=== PATIENT | female | born 1955 | race Caucasian/White ===

== ENCOUNTER → 2020-07-19 | Outpatient (CLI) | payer BC ==
[2014-07-13 10:27] VITALS: BP 106/67
[~2020-07-19] MED LIST: ASPI-630 PO; LORA-254 PO; NITR0.4T22 SL; SUCR1ORA14 PO
--- NOTE | 2020-07-19 11:50 | RAD ---
ADDENDUM #1 Multiple question darnell appear in this report due to a dictation system bug. Please disregard these c haracters. Electronically signed by: Curry Chappell MD (07/21/2020 9:08 AM) [facility] ABDOMEN+PELVIS WO History: Right flank pain, history stones. Cholecystectomy, appendectomy, hysterectomy. Comparison: CT abdomen pelvis 11/01/2015. Technique: CT of the abdomen and pelvis without contrast. Findings: Lung bases: Bandlike atelectasis left lower lobe. General abdomen: No ascites. No free air. Liver : Normal in size and attenuation. Unchanged 5 mm left hepatic lobe hypodensity too small to justyna racterize most likely cyst. Gallbladder/Biliary Tree: Status post cholecystectomy. No intrahepatic or extrahepatic biliary ductal dilatation. Pancreas: Normal. Spleen: Normal in size and attenuation. Adrenal Glands: Normal. Genitourinary: No hydronephrosis or hydroureter.?No renal masses identified. Normal partially distend ed bladder contour. Gastrointestinal: Status post cholecystectomy. Unremarkable small bowel and colon. Lymph nodes: No lymphadenopathy. Vessels: Mild aortoiliac calcification. Pelvic Organs: Status post hysterectomy. No masses. Soft tissues: Unremarkable. Bones: No acute or aggressive lesions. Impression: 1. No acute findings in the abdomen and pelvis. No nephrolithiasis or hydronephrosis. ------ Exposure: One or more of the following individualized dose reduction techniques were utilized for thi s examination: 1. Automated exposure control 2. Adjustment of the mA and/or kV according to patient size 3. Use of iterative reconstruction technique. Electronically signed by: Curry Chappell MD (07/19/2020 11:48 AM) [facility]
== END ==
LOC: CT 10:54
PROVIDERS: ATTEND Physician Assistant
DX: N32.89 Other specified disorders of bladder (principal); I70.0 Atherosclerosis of aorta; R31.9 Hematuria, unspecified; J98.11 Atelectasis
CPT/HCPCS: 74176

== ENCOUNTER 2021-01-30 18:44 | Emergency (ER) | payer BC ==
[~2021-01-30] VITALS: Ht 157.5 cm; Wt 52.2 kg
--- NOTE | 2021-01-30 19:06 | PHYS DOC ---
Past History Past Medical History: Anxiety, Constipation, GERD, Kidney Stones Past Surgical History: Cholecystectomy, Hysterectomy Alcohol Use: None Drug Use: None General Adult EDM: Chief Complaint: FLANK PAIN HPI: HPI: ".. I ve been having abdomen pain for months. now.. more frequent this past month.. but tonight it is worse... ".. " I ve had sciatica in past.. and kidney stones.. too many time s to count..." Patient is a 65 year old FEMALE who presents with complaints of left flank and abdomen pain. Patient states pain has been off and on for the past month and much more severe tonight. Patient does not relate it to sciatica related more to kidney stones however this seems to be him more localized to the lower abdomen tonight. Patient does have pain with percussion of left flank. Patient denies any trauma. No severe ill contacts. No history of travel. Normally follows with Dr. Hallman. Review of Systems: Review of Systems: Constitutional: Denies fever or chills Eyes: Denies change in visual acuity HENT: Denies nasal congestion or sore throat Respiratory: Denies cough or shortness of breath Cardiovascular: Denies chest pain or edema GI: Complains of abdominal pain, nausea,. Vomiting, bloody stools or diarrhea. History of constipation : Denies dysuria Musculoskeletal: Complains of left flank pain Integument: Denies rash Neurologic: Denies headache, focal weakness or sensory changes Endocrine: Denies polyuria or polydipsia Lymphatic: Denies swollen glands Psychiatric: Denies depression or anxiety Family History: Family History: Noncontributory to presentation Current Medications: Current Meds: See nursing for home meds Allergies: Allergies: Allergies Coded Allergies Type Severity Reaction Last Updated Verified Penicillins Allergy Intermediate 07/13/14 Yes ciprofloxacin Allergy Intermediate 07/13/14 Yes codeine Allergy Intermediate 07/13/14 Yes fluconazole Allergy Intermediate 07/13/14 Yes hydrocodone Allergy Intermediate 07/13/14 Yes meperidine Allergy Intermediate 07/13/14 Yes tetanus immune globulin Allergy Intermediate 07/13/14 Yes Physical Exam: PE: Constitutional: Moderate acute distress, non-toxic appearance. [] HENT: Normocephalic, atraumatic, bilateral external ears normal, oropharynx moist, no oral exudates, nose normal. [] Eyes: PERRLA, EOMI, conjunctiva normal, no discharge. [] Neck: Normal range of motion, no tenderness, supple, no stridor. [] Cardiovascular: Tachycardia heart rate regular rhythm, no murmur [] Lungs & Thorax: Bilateral breath sounds equal apex few scattered wheezes auscultation [] Abdomen: Bowel sounds decreased, soft, no tenderness, no masses, no pulsatile masses. Old surgery scars. Skin: Warm, dry, no erythema, no rash. [] Back: No tenderness, some left-sided CVA tenderness. [] Extremities: No tenderness, no cyanosis, no clubbing, ROM intact, no edema. No cording appreciated. Neurologic: Alert and oriented X 3, normal motor function, normal sensory function, no focal deficits noted. [] Psychologic: Affect anxious, judgement normal, mood normal. [] EKG: EKG: My interpretation EKG shows a sinus tachycardia 102 bpm. SN 1-3 pattern no findings of acute STEMI of contralateral changes. [] Time of EKG is 1952 hrs. Radiology/Procedures: Radiology/Procedures: [][address] [address] IMAGING REPORT Signed PATIENT: LAMONT FINLEY ACCOUNT: [id number] : 1955 LOCATION: ER AGE: 65 SEX: F EXAM STATUS: REG ER ORD. PHYSICIAN: YONATHAN OBANDO MD REASON: pain, OMNI 240, 30ml & OMNI 300, 75ml PROCEDURE: CT ABD PELV W/ORAL&IV CONTRAST CT abdomen pelvis with contrast dated 01/30/2021. COMPARISON: 07/19/2020. Clinical data indication: Pain. TECHNIQUE: Contiguous axial imaging the M pelvis performed after the administration of 75 cc Omnipaque 300. One or more of the following individualized dose reduction techniques were utilized for this examination: 1. Automated exposure control 2. Adjustment of the mA and/or kV according to patient size 3. Use of iterative reconstruction technique. FINDINGS: Limited images of lung bases show linear bands of increased density in the lower lobes, likely scar or atelectasis. Heart size within normal limits. No pleural or pericardial effusion. There are circumscribed low-density foci in the liver, most consistent with cysts. No biliary ductal dilatation. Gallbladder surgically absent. Spleen is normal in size. Pancreas, adrenal glands and kidneys are unremarkable. No hydronephrosis. Partially opacified GI tract normal in caliber and contour. No bowel wall thickening. No inflammatory stranding in the mesentery. No ascites or lymphadenopathy. Appendix is not clearly identified. No inflammatory changes in the right lower quadrant. Abdominal aorta normal in caliber. Images of pelvis show moderately distended urinary bladder. Uterus is surgically absent. No free fluid or pelvic adenopathy. Bone windows show no acute finding. Multilevel spondylosis. IMPRESSION: 1. No acute abnormality of abdomen or pelvis. 2. The appendix is not clearly identified. No inflammatory changes in the mesentery. 3. Small hepatic cysts. 4. Status post cholecystectomy and hysterectomy. Electronically signed by: Phoenix Bae MD (01/30/2021 11:08 PM) [facility] [place] AND SIGNED BY: PHOENIX BAE MD DATE: 01/30/219 CC: YONATHAN OBANDO MD; JOON CAMARGO MD ~MTH0 0 Heart Score: C/O Chest Pain: N/A Risk Factors: Risk Factors: DM, Current or recent (<one month) smoker, HTN, HLP, family history of CAD, obesity. Risk Scores: Score 0 - 3: 2.5% MACE over next 6 weeks - Discharge Home Score 4 - 6: 20.3% MACE over next 6 weeks - Admit for Clinical Observation Score 7 - 10: 72.7% MACE over next 6 weeks - Early Invasive Strategies Course & Med Decision Making: Course & Med Decision Making Pertinent Labs and Imaging studies reviewed. (See chart for details) Patient push fluids. Patient follow-up primary care. Patient to review ED work-up. With primary. Patient return if any concerns. Patient stay on a clear fluid diet for the next 48 hours. No solids. No milk products. Follow- up primary care. Return if any concerns. Impression: 1. Abdomen pain 2. Viral syndrome 3. Elevated alk phos 133 [] Eileen Disclaimer: Eileen Disclaimer: This electronic medical record was generated, in whole or in part, using a voice recognition dictation system. Departure Departure: Referrals: JOON CAMARGO MD (PCP) Eileen Disclaimer This chart was dictated in whole or in part using Voice Recognition software in a busy, high-work load, and often noisy Emergency Department environment. It may contain unintended and wholly unrecognized errors or omissions. Dragon Disclaimer This chart was dictated in whole or in part using Voice Recognition software in a busy, high-work load, and often noisy Emergency Department environment. It may contain unintended and wholly unrecognized errors or omissions. Attending Signature Attending Signature I have participated in the care of this patient and I have reviewed and agree with all pertinent clinical information above including history, exam, and recommendations. YONATHAN OBANDO MD Jan 30, 2021 19:06
[2021-01-30] MEDS: KETOROLAC 30 MG/ML VIAL. IVP ONE (19:45)
[2021-01-30] MEDS: ONDANSETRON PF 4 MG/2 ML VIAL. IVP ONE (19:45)
[2021-01-30] MEDS: FAMOTIDINE 20 MG/2 ML VIAL IVP ONE (19:45)
[2021-01-30 19:51] LABS: BASO % 1 % (0-3); EOS # 0.1 x10^3/uL (0.0-0.7); EOS % 1 % (0-3); HEMATOCRIT 40.3 % (36.0-47.0); HEMOGLOBIN 13.8 g/dL (12.0-15.5); LYMPH # 2.6 x10^3/uL (1.0-4.8); LYMPH % 28 % (24-48); MEAN CORPUSCULAR HEMOGLOBIN 33 pg (25-35); MEAN CORPUSCULAR HGB CONC 34 g/dL (31-37); MEAN CORPUSCULAR VOLUME 97 fL (79-100); MONO # 0.6 x10^3/uL (0.0-1.1); MONO % 7 % (0-9); NEUT % 64 % (31-73); PLATELET COUNT 236 x10^3/uL (140-400); RED BLOOD COUNT 4.16 x10^6/uL (3.50-5.40); RED CELL DISTRIBUTION WIDTH 12.8 % (11.5-14.5); WHITE BLOOD COUNT 9.3 x10^3/uL (4.0-11.0)
[2021-01-30 19:53] LABS: CALCIUM 8.9 mg/dL (8.5-10.1); CREATININE 0.7 mg/dL (0.6-1.0); GFR 84.2; POTASSIUM 3.7 mmol/L (3.5-5.1)
[2021-01-30] MEDS: IV RINGERS SOLUTION,LACTATED 1,000 ML IV SCH (19:54)
[2021-01-30 20:02] LABS: ALBUMIN 3.8 g/dL (3.4-5.0); DIRECT BILIRUBIN 0.1 mg/dL (0.0-0.2); TOTAL BILIRUBIN 0.2 mg/dL (0.2-1.0); TOTAL PROTEIN 7.2 g/dL (6.4-8.2)
[2021-01-30 20:07] LABS: BARBITURATES NEG (NEG); BENZODIAZEPINES NEG (NEG); CANNABINOIDS NEG (NEG); COCAINE NEG (NEG); METHADONE NEG (NEG); OPIATES NEG (NEG); PHENCYCLIDINE NEG (NEG)
[2021-01-30 20:12] LABS: AMPHETAMINE/METHAMPHETAMINE NEG (NEG)
[2021-01-30 20:30] LABS: BACTERIA,URINE FEW /HPF (0-FEW); BILIRUBIN,URINE NEG (NEG); CLARITY,URINE CLEAR; COLOR,URINE YELLOW; GLUCOSE,URINE NEG (NEG); NITRITE,URINE NEG (NEG); UROBILINOGEN,URINE 0.2 mg/dL (0.2 mg/dL); WBC,URINE OCC /HPF (0-4)
[2021-01-30 20:31] LABS: SQUAMOUS EPITHELIAL CELL,UR FEW /LPF
[2021-01-30] MEDS: ACETAMINOPHEN 325 MG TABLET PO ONE (21:26)
[2021-01-30] MEDS ORDERED: CONTRAST GIVEN. MC PRN (21:45)
[2021-01-30] MEDS: IOHEXOL 240 MG/ML 50ML VIAL. PO ONE (22:35)
[2021-01-30] MEDS: IOHEXOL 300 MG/ML 75 ML VIAL. IV ONE (22:36)
--- NOTE | 2021-01-30 23:10 | RAD ---
CT abdomen pelvis with contrast dated 01/30/2021. COMPARISON: 07/19/2020. Clinical data indication: Pain. TECHNIQUE: Contiguous axial imaging the M pelvis performed after the administration of 75 cc Omnipaque 300. One or more of the following individualized dose reduction techniques were utilized for this examinat ion: 1. Automated exposure control 2. Adjustment of the mA and/or kV according to patient size 3. Use of iterative reconstruction technique. FINDINGS: Limited images of lung bases show linear bands of increased density in the lower lobes, likely scar o r atelectasis. Heart size within normal limits. No pleural or pericardial effusion. There are circumscribed low-density foci in the liver, most consistent with cysts. No biliary ductal dilatation. Gallbladder surgically absent. Spleen is normal in size. Pancreas, adrenal glands and kidneys are unremarkable. No hydronephrosis. Partially opacified GI tract normal in caliber and contour. No bowel wall thickening. No inflammatory stranding in the mesentery. No ascites or lymphadenopathy. Appendix is not clearly identified. No in flammatory changes in the right lower quadrant. Abdominal aorta normal in caliber. Images of pelvis show moderately distended urinary bladder. Uterus is surgically absent. No free flui d or pelvic adenopathy. Bone windows show no acute finding. Multilevel spondylosis. IMPRESSION: 1. No acute abnormality of abdomen or pelvis. 2. The appendix is not clearly identified. No inflammatory changes in the mesentery. 3. Small hepatic cysts. 4. Status post cholecystectomy and hysterectomy. Electronically signed by: Phoenix Lloyd MD (01/30/2021 11:08 PM) [facility]
[2021-01-31 00:10] VITALS: BP 124/68
--- NOTE | 2021-01-31 00:22 | RAD ---
INDICATION: Abdomen pain COMPARISON: July 19, 2020 IMPRESSION: 3 views of the chest and abdomen obtained. Cardiac silhouette is unremarkable. Hyperexpanded lungs with some disorganization of the pulmonary markings which can be seen with causes such as emphysema. No focal airspace consolidation to suggest pneumonia. Air scattered throughout the large and small bowel in a nonspecific but not grossly obstructive patte rn with some mildly prominent air-filled loops of bowel. Degenerative changes of the hips and spine. Electronically signed by: Rony Tee MD (01/31/2021 12:20 AM) [id number]
--- NOTE | 2021-01-31 04:15 | EKG ---
[address] [address] Test Date: 2021-01-30 Test Time: 19:53:15 Pat Name: LAMONT FINLEY Department: Room: Gender: F [employer]: : 1955 Requested By: YONATHAN OBANDO Order Number: [id number] Reading MD: Barry Billy Measurements Intervals [place] Rate: 102 P: 45 UT: 154 QRS: 77 QRSD: 80 T: 42 QT: 350 QTc: 461 Interpretive Statements SINUS TACHYCARDIA Electronically Signed On 01-31-2021 12:39:38 CDT by Barry Billy
== END 2021-01-31 00:12 | disposition home or self-care (01) ==
LOC: ER 18:44
DX: B34.9 Viral infection, unspecified (principal); R74.8 Abnormal levels of other serum enzymes; Z90.49 Acquired absence of other specified parts of digestive tract; Z90.710 Acquired absence of both cervix and uterus; Z88.0 Allergy status to penicillin; Z88.1 Allergy status to other antibiotic agents; Z87.442 Personal history of urinary calculi
CPT/HCPCS: 36415; 74022; 74177; 80048; 80076; 80307; 81001; 82150; 83690; 85025; 93005; 96360; 96361; 99285; J7120; Q9966; Q9967